=== PATIENT | female | born 1960 | race Caucasian/White ===

== ENCOUNTER 2017-06-27 10:00 | Outpatient (CLI) | payer OTHER | END 2017-06-27 10:01 | disposition home or self-care (01) | LOC: LAB.WCP 10:00 | PROVIDERS: ATTEND Family Medicine | DX: R35.0 Frequency of micturition (principal); N39.0 Urinary tract infection, site not specified | CPT/HCPCS: 87086 ==

== ENCOUNTER 2019-06-02 09:00 | Outpatient (CLI) | payer BC, OTHER ==
--- NOTE | 2019-06-03 17:51 | XRAY Report ---
Reason: COUGH Procedure Date: 06/02/2019 Accession Number: [id number] / [id number] Procedure: WCP - Chest 2 View X-Ray CPT Code: 85128 Final Report FULL RESULT: EXAM: CHEST RADIOGRAPHY EXAM DATE: 06/02/2019 09:00 AM. CLINICAL HISTORY: COUGH. COMPARISON: None. TECHNIQUE: 2 views. FINDINGS: Lungs/Pleura: No focal opacities evident. No pleural effusion. No pneumothorax. Normal volumes. Mediastinum: Heart and mediastinal contours are unremarkable. Other: None. IMPRESSION: No acute intrathoracic plain film abnormality. RADIA
== END 2019-06-02 23:59 | disposition home or self-care (01) ==
LOC: DI.WCP 09:00
PROVIDERS: ATTEND Family Medicine
DX: J20.9 Acute bronchitis, unspecified (principal)
CPT/HCPCS: 71046

== ENCOUNTER 2019-11-30 10:24 | Outpatient (CLI) | payer BC ==
[2019-11-30 18:18] LABS: BASOPHILS # (AUTO) 0.1 10^3/uL (0.0-0.1); EOSINOPHILS # (AUTO) 0.1 10^3/uL (0.0-0.7); EOSINOPHILS % (AUTO) 1.7 %; LYMPHOCYTES % (AUTO) 38.7 %; MEAN CORPUSCULAR HEMOGLOBIN 31.9 pg (27.0-31.0); MEAN CORPUSCULAR HGB CONC 32.7 g/dL (32.0-36.0); MEAN CORPUSCULAR VOLUME 97.5 fL (81.0-99.0); MEAN PLATELET VOLUME 11.9 fL (7.9-10.8); MONOCYTES # (AUTO) 0.8 10^3/uL (0.0-1.0); NEUTROPHILS # (AUTO) 3.7 10^3/uL (1.5-6.6); NEUTROPHILS % (AUTO) 48.3 %; PLT - PLATELET COUNT 285 10^3/uL (130-450); RED BLOOD COUNT 4.39 10^6/uL (4.20-5.40); RED CELL DISTRIBUTION WIDTH 12.6 % (12.0-15.0); WHITE BLOOD COUNT 7.7 x10^3/uL (4.8-10.8)
[2019-11-30 18:23] LABS: ALBUMIN 4.5 g/dL (3.2-5.5); ALBUMIN/GLOBULIN RATIO 1.4 (1.0-2.2); BILIRUBIN,TOTAL 0.9 mg/dL (0.2-1.0); CALCIUM 9.6 mg/dL (8.5-10.3); CREATININE 0.8 mg/dL (0.4-1.0); TOTAL PROTEIN 7.7 g/dL (6.7-8.2)
[2019-11-30 18:27] LABS: BILIRUBIN,URINE NEGATIVE (NEGATIVE); GLUCOSE, URINE (UA) NEGATIVE (NEGATIVE); KETONES,URINE (UA) NEGATIVE (NEGATIVE); LEUKOCYTE ESTERASE, URINE NEGATIVE (NEGATIVE); NITRITE,URINE NEGATIVE (NEGATIVE); OCCULT BLOOD,URINE TRACE-LYSE (NEGATIVE); PH,URINE 7.5 PH (5.0-7.5); PROTEIN,URINE NEGATIVE (NEGATIVE); UROBILINOGEN,URINE 0.2 (NORMAL) E.U./dL (NORMAL)
[2019-11-30 18:42] LABS: BACTERIA,URINE Few /HPF (None Seen); CLARITY,URINE CLEAR (CLEAR); RBC,URINE 0-5 /HPF (0-5); SQUAMOUS EPITHELIAL CELL,UR FEW Squamous (<= Few)
[2019-11-30 18:58] LABS: RBC MORPHOLOGY (MULTIPLE) NORMAL APPEARANCE (NORMAL)
[2019-11-30 18:59] LABS: DIFFERENTIAL COMMENT MANUAL=AUTO DIFF; PLATELET ESTIMATE, MANUAL NORMAL (130-450,000) (NORMAL); PLATELET MORPHOLOGY NORMAL APPEARANCE (NORMAL)
== END 2019-11-30 23:59 | disposition home or self-care (01) ==
LOC: LAB.WCP 10:24
PROVIDERS: ATTEND Registered Nurse
DX: R10.30 Lower abdominal pain, unspecified (principal)
CPT/HCPCS: 36415; 80053; 81001; 85025; 87086

== ENCOUNTER 2020-09-25 08:00 | Outpatient (CLI) | payer BC ==
[2020-09-25 19:09] LABS: H. PYLORIS ANTIGEN STL NEGATIVE (Negative)
== END 2020-09-25 23:59 | disposition home or self-care (01) ==
LOC: LAB.WCP 08:00
PROVIDERS: ATTEND Family Medicine
DX: R19.7 Diarrhea, unspecified (principal)
CPT/HCPCS: 81599; 87045; 87046; 87338; 87427

== ENCOUNTER 2021-04-09 10:49 | Outpatient (CLI) | payer BC ==
[2021-04-09 17:56] LABS: BASOPHILS # (AUTO) 0.1 10^3/uL (0.0-0.1); BASOPHILS % (AUTO) 0.8 %; EOSINOPHILS # (AUTO) 0.2 10^3/uL (0.0-0.7); EOSINOPHILS % (AUTO) 2.5 %; HGB - HEMOGLOBIN 13.2 g/dL (12.0-16.0); LYMPHOCYTES # (AUTO) 3.2 10^3/uL (1.5-3.5); LYMPHOCYTES % (AUTO) 37.4 %; MEAN CORPUSCULAR HEMOGLOBIN 31.1 pg (27.0-31.0); MEAN CORPUSCULAR HGB CONC 32.2 g/dL (32.0-36.0); MEAN CORPUSCULAR VOLUME 96.5 fL (81.0-99.0); MEAN PLATELET VOLUME 12.5 fL (7.9-10.8); MONOCYTES # (AUTO) 0.6 10^3/uL (0.0-1.0); MONOCYTES % (AUTO) 7.1 %; NEUTROPHILS # (AUTO) 4.5 10^3/uL (1.5-6.6); NEUTROPHILS % (AUTO) 51.9 %; PLT - PLATELET COUNT 267 10^3/uL (130-450); RED BLOOD COUNT 4.25 10^6/uL (4.20-5.40); RED CELL DISTRIBUTION WIDTH 12.8 % (12.0-15.0); WHITE BLOOD COUNT 8.6 x10^3/uL (4.8-10.8)
[2021-04-09 18:57] LABS: ALBUMIN 4.2 g/dL (3.2-5.5); ALBUMIN/GLOBULIN RATIO 1.4 (1.0-2.2); ALKALINE PHOSPHATASE 88 IU/L (42-121); ALT ALANINE AMINOTRANSFERASE 63 IU/L (10-60); AST ASPARTATE AMINOTRANSFERASE 43 IU/L (10-42); BILIRUBIN,TOTAL 0.6 mg/dL (0.2-1.0); BUN - BLOOD UREA NITROGEN 24 mg/dL (6-20); CALCIUM 9.5 mg/dL (8.5-10.3); CARBON DIOXIDE - CO2 27 mmol/L (21-32); CHLORIDE 100 mmol/L (101-111); CHOL/HDL RATIO 3.8 (<4.4); CHOLESTEROL 233 mg/dL; CREATININE 0.9 mg/dL (0.4-1.0); GFR - MDRD 64 (>89); GLUCOSE 152 mg/dL (70-100); HDL CHOLESTEROL 61 mg/dL; LDL CHOLESTEROL,CALCULATED 141 mg/dL; LDL/HDL RATIO 2.3 (<4.4); POTASSIUM 3.9 mmol/L (3.5-5.0); SODIUM 136 mmol/L (135-145); TOTAL PROTEIN 7.2 g/dL (6.7-8.2); TRIGLYCERIDES 153 mg/dL; VLDL CHOLESTEROL 31 mg/dL
== END 2021-04-09 23:59 | disposition home or self-care (01) ==
LOC: LAB.WCP 10:49
PROVIDERS: ATTEND Family Medicine
DX: R03.0 Elevated blood-pressure reading, without diagnosis of hypertension (principal)
CPT/HCPCS: 36415; 80053; 80061; 83721; 85025

== ENCOUNTER 2021-06-19 09:21 | Outpatient (CLI) | payer BC ==
[2021-06-19] MEDS ORDERED: ALBUTEROL 1 PUFF INH STA (10:27)
== END 2021-06-19 09:22 | disposition home or self-care (01) ==
LOC: RT 09:21
PROVIDERS: ATTEND Family Medicine
DX: R06.02 Shortness of breath (principal)
CPT/HCPCS: 94060; 94729

== ENCOUNTER 2021-11-27 10:09 | Outpatient (CLI) | payer BC ==
[2021-11-27 11:48] LABS: BASOPHILS # (AUTO) 0.1 10^3/uL (0.0-0.1); BASOPHILS % (AUTO) 0.9 %; EOSINOPHILS # (AUTO) 0.2 10^3/uL (0.0-0.7); EOSINOPHILS % (AUTO) 2.3 %; HCT - HEMATOCRIT 41.5 % (37.0-47.0); HGB - HEMOGLOBIN 13.8 g/dL (12.0-16.0); LYMPHOCYTES # (AUTO) 3.1 10^3/uL (1.5-3.5); LYMPHOCYTES % (AUTO) 35.4 %; MEAN CORPUSCULAR HEMOGLOBIN 31.4 pg (27.0-31.0); MEAN CORPUSCULAR HGB CONC 33.3 g/dL (32.0-36.0); MEAN CORPUSCULAR VOLUME 94.5 fL (81.0-99.0); MEAN PLATELET VOLUME 12.2 fL (7.9-10.8); MONOCYTES # (AUTO) 0.6 10^3/uL (0.0-1.0); MONOCYTES % (AUTO) 6.5 %; NEUTROPHILS # (AUTO) 4.7 10^3/uL (1.5-6.6); NEUTROPHILS % (AUTO) 54.6 %; PLT - PLATELET COUNT 268 10^3/uL (130-450); RED BLOOD COUNT 4.39 10^6/uL (4.20-5.40); RED CELL DISTRIBUTION WIDTH 12.7 % (12.0-15.0); WHITE BLOOD COUNT 8.6 x10^3/uL (4.8-10.8)
[2021-11-27 12:09] LABS: ALBUMIN 3.9 g/dL (3.2-5.5); ALBUMIN/GLOBULIN RATIO 1.1 (1.0-2.2); ALKALINE PHOSPHATASE 98 IU/L (42-121); ALT ALANINE AMINOTRANSFERASE 52 IU/L (10-60); AST ASPARTATE AMINOTRANSFERASE 51 IU/L (10-42); BILIRUBIN,TOTAL 0.6 mg/dL (0.2-1.0); BUN - BLOOD UREA NITROGEN 19 mg/dL (6-20); CALCIUM 9.9 mg/dL (8.5-10.3); CARBON DIOXIDE - CO2 27 mmol/L (21-32); CHLORIDE 105 mmol/L (101-111); CHOL/HDL RATIO 2.8 (<4.4); CHOLESTEROL 164 mg/dL; CREATININE 0.9 mg/dL (0.4-1.0); GFR - MDRD 64 (>89); GLUCOSE 113 mg/dL (70-100); HDL CHOLESTEROL 58 mg/dL; LDL CHOLESTEROL,CALCULATED 82 mg/dL; LDL/HDL RATIO 1.4 (<4.4); POTASSIUM 4.2 mmol/L (3.5-5.0); SODIUM 140 mmol/L (135-145); TOTAL PROTEIN 7.3 g/dL (6.7-8.2); TRIGLYCERIDES 118 mg/dL; VLDL CHOLESTEROL 24 mg/dL
[2021-11-27 12:14] LABS: THYROID STIMULATING HORMONE 2.53 uIU/mL (0.34-5.60)
[2021-11-27 12:16] LABS: FREE T3 3.29 pg/mL (2.5-3.9); FREE T4 (FREE THYROXINE) 0.65 ng/dL (0.58-1.64)
[2021-11-28 21:17] LABS: ESTIMATED AVERAGE GLUCOSE 134 mg/dL (70-100); HEMOGLOBIN A1c% 6.3 % (4.27-6.07)
== END 2021-11-27 10:10 | disposition home or self-care (01) ==
LOC: LAB.N 10:09
PROVIDERS: ATTEND Physician Assistant
DX: E78.5 Hyperlipidemia, unspecified (principal); R74.01 Elevation of levels of liver transaminase levels; Z51.81 Encounter for therapeutic drug level monitoring; L65.9 Nonscarring hair loss, unspecified; R63.5 Abnormal weight gain; R73.9 Hyperglycemia, unspecified
CPT/HCPCS: 36415; 80053; 80061; 83036; 83721; 84439; 84443; 84481; 85025

== ENCOUNTER 2021-11-28 14:58 | Outpatient (CLI) | payer BC | END 2021-11-28 14:59 | disposition home or self-care (01) | LOC: LAB.N 14:58 | PROVIDERS: ATTEND Physician Assistant | DX: Z53.9 Procedure and treatment not carried out, unspecified reason (principal) ==

== ENCOUNTER 2023-05-07 11:24 | Outpatient (CLI) | payer OTHER ==
[2023-05-07 17:33] LABS: BASOPHILS # (AUTO) 0.1 10^3/uL (0.0-0.1); BASOPHILS % (AUTO) 1.1 %; EOSINOPHILS # (AUTO) 0.3 10^3/uL (0.0-0.7); EOSINOPHILS % (AUTO) 3.1 %; HCT - HEMATOCRIT 42.5 % (37.0-47.0); HGB - HEMOGLOBIN 13.8 g/dL (12.0-16.0); LYMPHOCYTES # (AUTO) 2.5 10^3/uL (1.5-3.5); LYMPHOCYTES % (AUTO) 30.3 %; MEAN CORPUSCULAR HGB CONC 32.5 g/dL (32.0-36.0); MEAN CORPUSCULAR VOLUME 98.6 fL (81.0-99.0); MEAN PLATELET VOLUME 12.2 fL (7.9-10.8); MONOCYTES # (AUTO) 0.6 10^3/uL (0.0-1.0); MONOCYTES % (AUTO) 7.4 %; NEUTROPHILS # (AUTO) 4.7 10^3/uL (1.5-6.6); NEUTROPHILS % (AUTO) 57.9 %; PLT - PLATELET COUNT 263 10^3/uL (130-450); RED BLOOD COUNT 4.31 10^6/uL (4.20-5.40); RED CELL DISTRIBUTION WIDTH 12.8 % (12.0-15.0); WHITE BLOOD COUNT 8.1 x10^3/uL (4.8-10.8)
[2023-05-07 18:17] LABS: ALBUMIN 4.1 g/dL (3.2-5.5); ALBUMIN/GLOBULIN RATIO 1.3 (1.0-2.2); ALKALINE PHOSPHATASE 136 IU/L (42-121); ALT ALANINE AMINOTRANSFERASE 49 IU/L (10-60); AST ASPARTATE AMINOTRANSFERASE 50 IU/L (10-42); BILIRUBIN,TOTAL 0.7 mg/dL (0.2-1.0); BUN - BLOOD UREA NITROGEN 11 mg/dL (6-20); CALCIUM 9.6 mg/dL (8.5-10.3); CARBON DIOXIDE - CO2 30 mmol/L (21-32); CHLORIDE 106 mmol/L (101-111); CHOL/HDL RATIO 5.6 (<4.4); CHOLESTEROL 247 mg/dL; CREATININE 0.7 mg/dL (0.6-1.3); GFR - MDRD 85 (>89); GLUCOSE 119 mg/dL (74-104); HDL CHOLESTEROL 44 mg/dL; LDL CHOLESTEROL,CALCULATED 167 mg/dL; LDL/HDL RATIO 3.8 (<4.4); POTASSIUM 4.1 mmol/L (3.5-4.5); SODIUM 141 mmol/L (135-145); TOTAL PROTEIN 7.3 g/dL (6.4-8.9); TRIGLYCERIDES 179 mg/dL (48-352); VLDL CHOLESTEROL 36 mg/dL
[2023-05-07 20:27] LABS: BACTERIAL VAGINOSIS DNA NEGATIVE (NEGATIVE); CANDIDA GLABRATA DNA NEGATIVE (NEGATIVE); CANDIDA GROUP DNA NEGATIVE (NEGATIVE); CANDIDA KRUSEI DNA NEGATIVE (NEGATIVE); TRICHOMONAS VAGINALIS DNA NEGATIVE (NEGATIVE)
[2023-05-07 21:09] LABS: ESTIMATED AVERAGE GLUCOSE 134 mg/dL (70-100); HEMOGLOBIN A1c% 6.3 % (4.27-6.07)
== END 2023-05-07 11:25 | disposition home or self-care (01) ==
LOC: LAB.N 11:24
PROVIDERS: ATTEND Physician Assistant
DX: E78.5 Hyperlipidemia, unspecified (principal); R73.9 Hyperglycemia, unspecified; N89.8 Other specified noninflammatory disorders of vagina
CPT/HCPCS: 36415; 80053; 80061; 81514; 83036; 83721; 84443; 85025

== ENCOUNTER 2023-06-06 08:00 | Outpatient (CLI) | payer OTHER ==
[2023-06-06 18:08] LABS: BILIRUBIN,URINE NEGATIVE (NEGATIVE); GLUCOSE, URINE (UA) 100 mg/dL (NEGATIVE); KETONES,URINE (UA) NEGATIVE (NEGATIVE); LEUKOCYTE ESTERASE, URINE NEGATIVE (NEGATIVE); NITRITE,URINE POSITIVE (NEGATIVE); OCCULT BLOOD,URINE NEGATIVE (NEGATIVE); PH,URINE 5.5 PH (5.0-7.5); PROTEIN,URINE NEGATIVE (NEGATIVE); UROBILINOGEN,URINE 0.2 (NORMAL) E.U./dL (NORMAL)
[2023-06-06 18:19] LABS: CLARITY,URINE CLOUDY (CLEAR)
[2023-06-06 18:39] LABS: AMORPHOUS SEDIMENT,UR Marked /LPF; BACTERIA,URINE Moderate /HPF (None Seen); RBC,URINE None Seen /HPF (0-5); SQUAMOUS EPITHELIAL CELL,UR RARE Squamous (<= Few); WBC,URINE 0-3 /HPF (0-5)
== END 2023-06-06 23:59 | disposition home or self-care (01) ==
LOC: LAB 08:00
PROVIDERS: ATTEND Physician Assistant
DX: R30.0 Dysuria (principal)
CPT/HCPCS: 81001; 87077; 87086; 87181

== ENCOUNTER 2023-06-11 11:21 | Outpatient (CLI) | payer OTHER ==
--- NOTE | 2023-06-12 10:20 | Mammography Report ---
BILATERAL DIGITAL SCREENING MAMMOGRAM 3D/2D: 06/11/2023 CLINICAL: Routine screening. Comparison is made to exam dated: 11/10/2008 mammogram - [facility]. Both breasts are almost entirely fatty (category a/<25% glandular tissue). No significant masses, calcifications, or other findings are seen in either breast. There has been no significant interval change. IMPRESSION: NEGATIVE There is no mammographic evidence of malignancy. A 1 year screening mammogram is recommended. Based on the Tyrer Cuzick model (a risk assessment model) the patients lifetime risk is 3.4% and her 10 year risk is 1.5%. According to the ACR, ACS, and NCCN guidelines, an annual breast MRI exam zane g with mammogram is recommended if the patients lifetime risk is 20% or greater. This exam was interpreted at Station ID: [id number]. NOTE: For mammograms, a report in lay terms will be sent to the patient. Approximately 15% of breast malignancies will not be visualized mammographically. In the management of a palpable breast mass, a negative mammogram must not discourage biopsy of a clinically suspicious lesion. Electronically Signed By: Kody muse/[email or web address]:06/11/2023 23:54:16 letter sent: No_Letter ACR BI-RADS Category 1: Negative 3341F PARENCHYMAL PATTERN: (F) - The breast(s) demonstrate(s) diffuse fatty replacement. BI-RADS CATEGORY: (1) - 1 Mammogram [id number] 1 year screening LATERALITY: (B)
== END 2023-06-11 11:22 | disposition home or self-care (01) ==
LOC: DI.N 11:21
PROVIDERS: ATTEND Physician Assistant
DX: Z12.31 Encounter for screening mammogram for malignant neoplasm of breast (principal)

== ENCOUNTER 2023-08-22 11:32 | Outpatient (CLI) | payer OTHER ==
--- NOTE | 2023-08-22 11:57 | XRAY Report ---
PROCEDURE: Chest 2V INDICATIONS: UNINTENTIONAL WEIGHT LOSS TECHNIQUE: 2 views of the chest were acquired. COMPARISON: 06/02/2019 FINDINGS: Surgical changes and devices: None. Lungs and pleura: No dense consolidation or pleural effusion Mediastinum: Normal heart size Bones and chest wall: No acute finding. Minimal wedging of multiple thoracic vertebral bodies, also s een previously, likely degenerative. IMPRESSION: No acute radiographic abnormality. Reviewed by: Jeff Barksdale MD on 08/22/2023 11:56 AM [facility] Approved by: Jeff Barksdale MD on 08/22/2023 11:56 AM PST Station ID: [id number]
== END 2023-08-22 11:33 | disposition home or self-care (01) ==
LOC: DI.N 11:32
PROVIDERS: ATTEND Physician Assistant
DX: R63.4 Abnormal weight loss (principal); R23.2 Flushing; N95.1 Menopausal and female climacteric states; R73.9 Hyperglycemia, unspecified
CPT/HCPCS: 36415; 80053; 81001; 81003; 83036; 84443; 85025; 85651; 86140; 87086; 87522

== ENCOUNTER 2023-08-22 11:34 | Outpatient (CLI) | payer OTHER ==
[2023-08-22 17:49] LABS: BASOPHILS # (AUTO) 0.1 10^3/uL (0.0-0.1); BASOPHILS % (AUTO) 1.3 %; EOSINOPHILS # (AUTO) 0.2 10^3/uL (0.0-0.7); EOSINOPHILS % (AUTO) 2.5 %; HCT - HEMATOCRIT 47.6 % (37.0-47.0); HGB - HEMOGLOBIN 15.9 g/dL (12.0-16.0); LYMPHOCYTES # (AUTO) 3.2 10^3/uL (1.5-3.5); LYMPHOCYTES % (AUTO) 50.5 %; MEAN CORPUSCULAR HEMOGLOBIN 31.9 pg (27.0-31.0); MEAN CORPUSCULAR HGB CONC 33.4 g/dL (32.0-36.0); MEAN CORPUSCULAR VOLUME 95.6 fL (81.0-99.0); MEAN PLATELET VOLUME 13.6 fL (7.9-10.8); MONOCYTES # (AUTO) 0.6 10^3/uL (0.0-1.0); MONOCYTES % (AUTO) 8.9 %; NEUTROPHILS # (AUTO) 2.3 10^3/uL (1.5-6.6); NEUTROPHILS % (AUTO) 36.5 %; PLT - PLATELET COUNT 200 10^3/uL (130-450); RED BLOOD COUNT 4.98 10^6/uL (4.20-5.40); RED CELL DISTRIBUTION WIDTH 11.8 % (12.0-15.0); WHITE BLOOD COUNT 6.4 x10^3/uL (4.8-10.8)
[2023-08-22 18:03] LABS: ALBUMIN 4.5 g/dL (3.2-5.5); ALBUMIN/GLOBULIN RATIO 1.4 (1.0-2.2); BILIRUBIN,TOTAL 0.8 mg/dL (0.2-1.0); CALCIUM 10.2 mg/dL (8.5-10.3); CREATININE 0.6 mg/dL (0.6-1.3); CRP - C-REACTIVE PROTEIN 0.5 mg/dL (<0.5); POTASSIUM 3.9 mmol/L (3.5-4.5); TOTAL PROTEIN 7.7 g/dL (6.4-8.9)
[2023-08-22 18:18] LABS: THYROID STIMULATING HORMONE 2.12 uIU/mL (0.34-5.60)
[2023-08-22 18:41] LABS: BILIRUBIN,URINE NEGATIVE (NEGATIVE); CLARITY,URINE CLOUDY (CLEAR); GLUCOSE, URINE (UA) >=1000 mg/dL (NEGATIVE); KETONES,URINE (UA) NEGATIVE (NEGATIVE); LEUKOCYTE ESTERASE, URINE NEGATIVE (NEGATIVE); NITRITE,URINE NEGATIVE (NEGATIVE); OCCULT BLOOD,URINE NEGATIVE (NEGATIVE); PROTEIN,URINE NEGATIVE (NEGATIVE); UROBILINOGEN,URINE 0.2 (NORMAL) E.U./dL (NORMAL)
[2023-08-22 19:00] LABS: WBC,URINE 0-3 /HPF (0-5)
[2023-08-22 19:01] LABS: AMORPHOUS SEDIMENT,UR Marked /LPF; BACTERIA,URINE Moderate /HPF (None Seen); RBC,URINE 0-5 /HPF (0-5); SQUAMOUS EPITHELIAL CELL,UR RARE Squamous (<= Few)
[2023-08-22 20:25] LABS: ESTIMATED AVERAGE GLUCOSE 315 mg/dL (70-100); HEMOGLOBIN A1c% 12.6 % (4.27-6.07)
== END 2023-08-22 11:35 | disposition home or self-care (01) ==
LOC: LAB.N 11:34
PROVIDERS: ATTEND Physician Assistant
DX: R63.4 Abnormal weight loss (principal); R23.2 Flushing; N95.1 Menopausal and female climacteric states; R73.9 Hyperglycemia, unspecified
CPT/HCPCS: 36415; 80053; 81001; 81003; 83036; 84443; 85025; 85651; 86140; 87086; 87522

== ENCOUNTER 2023-08-26 12:15 | Outpatient (CLI) | payer OTHER ==
[2023-08-26 18:46] LABS: CA 125 9.1 U/mL (0.5-35.0)
[2023-08-29 04:09] LABS: HCV AB Non Reactive (Non Reactive)
== END 2023-08-26 12:16 | disposition home or self-care (01) ==
LOC: LAB.N 12:15
PROVIDERS: ATTEND Physician Assistant
DX: R63.4 Abnormal weight loss (principal); R79.89 Other specified abnormal findings of blood chemistry; R74.8 Abnormal levels of other serum enzymes
CPT/HCPCS: 36415; 82105; 82378; 82977; 86304; 86803

== ENCOUNTER 2023-08-27 14:18 | Emergency (ER) | payer OTHER ==
[2023-08-27 14:31] VITALS: BP 165/63; O2SAT 96
[2023-08-27 14:52] LABS: VBG PH 7.366 (7.31-7.41)
[2023-08-27 14:53] LABS: BASOPHILS # (AUTO) 0.1 10^3/uL (0.0-0.1); BASOPHILS % (AUTO) 0.9 %; EOSINOPHILS # (AUTO) 0.2 10^3/uL (0.0-0.7); HCT - HEMATOCRIT 42.6 % (37.0-47.0); HGB - HEMOGLOBIN 14.6 g/dL (12.0-16.0); LYMPHOCYTES # (AUTO) 2.8 10^3/uL (1.5-3.5); LYMPHOCYTES % (AUTO) 40.1 %; MEAN CORPUSCULAR HEMOGLOBIN 32.2 pg (27.0-31.0); MEAN CORPUSCULAR HGB CONC 34.3 g/dL (32.0-36.0); MEAN CORPUSCULAR VOLUME 93.8 fL (81.0-99.0); MEAN PLATELET VOLUME 12.2 fL (7.9-10.8); MONOCYTES # (AUTO) 0.4 10^3/uL (0.0-1.0); MONOCYTES % (AUTO) 6.2 %; NEUTROPHILS # (AUTO) 3.5 10^3/uL (1.5-6.6); NEUTROPHILS % (AUTO) 49.7 %; PLT - PLATELET COUNT 189 10^3/uL (130-450); RED BLOOD COUNT 4.54 10^6/uL (4.20-5.40); RED CELL DISTRIBUTION WIDTH 11.7 % (12.0-15.0); VBG BASE EXCESS -0.2 mmol/L (-2 - +2); VBG HCO3 25.6 mmol/L (23-28); VBG OXYGEN SATURATION 67.1 % (60-80); VBG PCO2 45.7 mmHg (41-51); VBG PO2 33.7 mmHg (25-47)
--- NOTE | 2023-08-27 15:13 | ED Physician Documentation ---
History of Present Illness - Stated complaint Stated Complaint: HIGH BLOOD SUGAR - Chief complaint Chief Complaint: Abd Pain - History obtained from History obtained from: Patient - Additonal information Additional information: DX DMII YESTERDAY STARTED BASAGLAR 8 UNIT/DAY, 2ND DOSE TODAY NO PO MEDS FOR DMII FSBS >500 AT HOME FEELS FINE PD PAST MEDICAL HISTORY - Past Medical History Past Medical History: Yes Endocrine/Autoimmune: Type 2 diabetes - Past Surgical History Past Surgical History: Yes /[employer] SURFACE TOOL: Hysterectomy, Other Derm: Skin cancer surgery - Present Medications Home Medications: Ambulatory Orders Medication Instructions Recorded Confirmed Atorvastatin [Lipitor] 20 mg PO QPM 08/27/23 08/27/23 Citalopram [CeleXA] 40 mg PO DAILY 08/27/23 08/27/23 Insulin Glargine,Hum.rec.anlog 0 unit SUBQ DAILY 08/27/23 08/27/23 [Basaglar Kwikpen U-100] Mirtazapine 15 mg PO DAILY 08/27/23 08/27/23 metFORMIN [Glucophage] 500 mg PO BIDWM #60 tablet 08/27/23 - Allergies Allergies/Adverse Reactions: Allergies Allergy/AdvReac Type Severity Reaction Status Date / Time No Known Drug Allergies Allergy Verified 08/27/23 14:27 - Social History Does the pt smoke?: No Smoking Status: Never smoker PD ED PE NORMAL - Vitals Vital signs reviewed: Yes - General General: Alert and oriented X 3, No acute distress - Extremities Extremities: No edema - Neuro Neuro: Alert and oriented X 3 - Psych Psych: Normal mood Results - Vitals Vitals: Vital Signs - 24 hr 08/27/23 14:25 Temperature 36.4 C L Heart Rate 73 Respiratory 18 Rate Blood Pressure 165/63 H O2 Saturation 96 Oxygen O2 Source Room air - Labs Labs: Laboratory Tests 08/27/23 08/27/23 08/27/23 14:31 14:46 14:46 WBC 7.0 RBC 4.54 Hgb 14.6 Hct 42.6 MCV 93.8 MCH 32.2 H MCHC 34.3 RDW 11.7 L Plt Count 189 MPV 12.2 H Neut # (Auto) 3.5 Lymph # (Auto) 2.8 [place] # (Auto) 0.4 Eos # (Auto) 0.2 Baso # (Auto) 0.1 Absolute Nucleated RBC 0.00 Nucleated RBC % 0.0 VBG pH 7.366 VBG pCO2 45.7 VBG pO2 33.7 VBG HCO3 25.6 VBG Total CO2 27.0 VBG O2 Saturation 67.1 VBG Base Excess -0.2 POC Whole Bld Glucose 497 H PD Medical Decision Making - ED course ED course: NEW DX DMII WITH HYPERGLYCEMIA NO E/O DKA WILL ADD METFORMIN AND INCREASE BASAGLAR Departure - Departure Disposition: Home, Self Care Clinical Impression: Diabetes Qualifiers: Diabetes mellitus type: type 2 Diabetes mellitus oysterman insulin use: unspecified oysterman insulin use status Diabetes mellitus complication status: with hyperglycemia Qualified Code(s): E11.65 - Type 2 diabetes mellitus with hyperglycemia Condition: Good Record reviewed to determine appropriate education?: Yes Instructions: Diabetes Type 2 Coping, Diabetes Type 2 Oral Meds, ED Hyperglycemia Diabetic Follow-Up: Fariha Blount PA [Primary Care Provider] - Prescriptions: metFORMIN [Glucophage] 500 mg PO BIDWM #60 tablet Comments: FOLLOWUP WITH YOUR PCP IN THE NEXT FEW DAYS.TODAY TAKE AN EXTRA DOSE OF 8 UNIT BASAGLAR WHEN YOU GET HOME. STARTING TOMORROW DOUBLE YOUR DOSE OF BASAGLAR TO 16 UNIT DAILY. IF BLOOD SUGAR STILL OVER 250, ADD 4 UNITS EACH DaY OF THE BASAGLAR, SO 20 UNIT ON FRIDAY 24 UNIT FRIDAY AND SO ON UNTIL <250 OR SO. ASK LITO BLOUNT ABOUT DIABETIC EDUCATION RETURN IF WORSE. Forms: PCP List
[2023-08-27 15:17] LABS: BUN - BLOOD UREA NITROGEN 16 mg/dL (6-20); CARBON DIOXIDE - CO2 26 mmol/L (21-32); CHLORIDE 101 mmol/L (101-111); CREATININE 0.8 mg/dL (0.6-1.3); GFR - MDRD 72 (>89); POTASSIUM 3.9 mmol/L (3.5-4.5); SODIUM 134 mmol/L (135-145)
[2023-08-27 15:18] LABS: ALT ALANINE AMINOTRANSFERASE 53 IU/L (10-60); AST ASPARTATE AMINOTRANSFERASE 44 IU/L (10-42); BILIRUBIN,TOTAL 0.7 mg/dL (0.2-1.0); CALCIUM 9.7 mg/dL (8.5-10.3)
[2023-08-27 15:19] LABS: ALBUMIN 4.2 g/dL (3.2-5.5); ALBUMIN/GLOBULIN RATIO 1.4 (1.0-2.2); ALKALINE PHOSPHATASE 235 IU/L (42-121); LIPASE 66 U/L (11-82); TOTAL PROTEIN 7.2 g/dL (6.4-8.9)
[2023-08-27] MEDS: metFORMIN 500 MG TABLET PO STA (15:19)
[2023-08-27 15:34] LABS: GLUCOSE 511 mg/dL (74-104); KETONES, SERUM (ACETEST) NEGATIVE (NEGATIVE)
== END 2023-08-27 15:27 | disposition home or self-care (01) ==
LOC: ED 14:18
DX: E11.65 Type 2 diabetes mellitus with hyperglycemia (principal); Z79.4 Long term (current) use of insulin
CPT/HCPCS: 36415; 80053; 82009; 82803; 83690; 85025; 99283; A9270

== ENCOUNTER 2024-01-07 12:29 | Outpatient (CLI) | payer OTHER ==
[2024-01-07 17:54] LABS: BASOPHILS # (AUTO) 0.1 10^3/uL (0.0-0.1); BASOPHILS % (AUTO) 1.1 %; EOSINOPHILS # (AUTO) 0.2 10^3/uL (0.0-0.7); EOSINOPHILS % (AUTO) 2.9 %; HCT - HEMATOCRIT 42.2 % (37.0-47.0); HGB - HEMOGLOBIN 13.9 g/dL (12.0-16.0); LYMPHOCYTES # (AUTO) 3.2 10^3/uL (1.5-3.5); LYMPHOCYTES % (AUTO) 40.4 %; MEAN CORPUSCULAR HGB CONC 32.9 g/dL (32.0-36.0); MEAN CORPUSCULAR VOLUME 97.2 fL (81.0-99.0); MONOCYTES # (AUTO) 0.6 10^3/uL (0.0-1.0); MONOCYTES % (AUTO) 7.5 %; NEUTROPHILS # (AUTO) 3.8 10^3/uL (1.5-6.6); NEUTROPHILS % (AUTO) 47.8 %; PLT - PLATELET COUNT 236 10^3/uL (130-450); RED BLOOD COUNT 4.34 10^6/uL (4.20-5.40); RED CELL DISTRIBUTION WIDTH 12.1 % (12.0-15.0)
[2024-01-07 18:08] LABS: ALBUMIN 4.4 g/dL (3.2-5.5); ALBUMIN/GLOBULIN RATIO 1.3 (1.0-2.2); ALKALINE PHOSPHATASE 169 IU/L (42-121); ALT ALANINE AMINOTRANSFERASE 57 IU/L (10-60); AST ASPARTATE AMINOTRANSFERASE 57 IU/L (10-42); BILIRUBIN,TOTAL 0.6 mg/dL (0.2-1.0); BUN - BLOOD UREA NITROGEN 23 mg/dL (6-20); CARBON DIOXIDE - CO2 29 mmol/L (21-32); CHLORIDE 105 mmol/L (101-111); CHOLESTEROL 176 mg/dL; CREATININE 0.8 mg/dL (0.6-1.3); GFR - MDRD 72 (>89); GLUCOSE 111 mg/dL (74-104); HDL CHOLESTEROL 58 mg/dL; LDL CHOLESTEROL,CALCULATED 95 mg/dL; LDL/HDL RATIO 1.6 (<4.4); POTASSIUM 4.2 mmol/L (3.5-4.5); SODIUM 140 mmol/L (135-145); TOTAL PROTEIN 7.9 g/dL (6.4-8.9); TRIGLYCERIDES 116 mg/dL; VLDL CHOLESTEROL 23 mg/dL
[2024-01-07 18:16] LABS: THYROID STIMULATING HORMONE 4.13 uIU/mL (0.34-5.60)
[2024-01-07 18:20] LABS: CREATININE,URINE 239.9 mg/dL; MICROALBUM/CREATININE RATIO,UR 8.8 ug/mg (<30.0); MICROALBUMIN,URINE 2.1 mg/dL
[2024-01-07 22:53] LABS: ESTIMATED AVERAGE GLUCOSE 148 mg/dL (70-100); HEMOGLOBIN A1c% 6.8 % (4.27-6.07)
== END 2024-01-07 12:30 | disposition home or self-care (01) ==
LOC: LAB.N 12:29
PROVIDERS: ATTEND Physician Assistant
DX: E11.65 Type 2 diabetes mellitus with hyperglycemia (principal)
CPT/HCPCS: 36415; 80053; 80061; 82043; 82570; 83036; 83721; 84443; 85025